=== PATIENT | male | born 1980 | race Caucasian/White ===

== ENCOUNTER 2017-10-10 14:06 | Emergency (ER) | payer OTHER ==
[~2017-10-10] VITALS: Ht 182.8 cm; Wt 72.6 kg
[~2017-10-10 14:06] MED LIST: HYDROCODONE BIT1 T11 PO; MOTRIN800 MG PO; PEN-VEE K500 MG PO
[2017-10-10] MEDS ORDERED: CLINDAMYCIN150 MG PO (14:16)
[2017-10-10] MEDS ORDERED: ZOFRAN4 MG PO (14:16)
[2017-10-10] MEDS ORDERED: Peridex 473 ML473 ML PO (14:16)
[2017-10-10] MEDS ORDERED: NAPROSYN500 MG PO (14:16)
== END 2017-10-10 14:40 | disposition home or self-care (01) ==
LOC: ED 14:06
DX: K04.7 Periapical abscess without sinus (principal)

== ENCOUNTER 2018-03-08 13:01 | Emergency (ER) | payer SELFPAY ==
[~2018-03-08] VITALS: Ht 175.2 cm; Wt 73.5 kg
[~2018-03-08 13:01] MED LIST changes: +CLINDAMYCIN150 MG PO; +NAPROSYN500 MG PO; +Peridex 473 ML473 ML PO; +ZOFRAN4 MG PO
[2018-03-08] MEDS ORDERED: NAPROSYN500 MG PO (13:33)
[2018-03-08] MEDS ORDERED: SEPTDS PO (13:33)
[2018-03-08] MEDS ORDERED: CEPHALEXIN500 M1 PO (13:33)
== END 2018-03-08 14:00 | disposition left against medical advice (07) ==
LOC: ED 13:01
DX: L03.311 Cellulitis of abdominal wall (principal); F17.200 Nicotine dependence, unspecified, uncomplicated

== ENCOUNTER 2018-07-09 11:28 | Emergency (ER) | payer SELFPAY ==
[~2018-07-09] VITALS: Ht 175.2 cm; Wt 77.1 kg
[~2018-07-09 11:28] MED LIST changes: +CEPHALEXIN500 M1 PO; +SEPTDS PO
[2018-07-09] MEDS ORDERED: Peridex 473 ML473 ML PO (11:34)
[2018-07-09] MEDS ORDERED: NAPROSYN500 MG PO (11:34)
[2018-07-09] MEDS ORDERED: AUGMENTIN 500500 MG PO (11:34)
[2018-07-09] MEDS ORDERED: ZOFRAN4 MG PO (11:34)
== END 2018-07-09 11:57 | disposition home or self-care (01) ==
LOC: ED 11:28
DX: K04.7 Periapical abscess without sinus (principal); K02.9 Dental caries, unspecified; R03.0 Elevated blood-pressure reading, without diagnosis of hypertension

== ENCOUNTER 2019-06-25 15:14 | Emergency (ER) | payer SELFPAY ==
[~2019-06-25] VITALS: Ht 175.2 cm; Wt 79.4 kg
[~2019-06-25 15:14] MED LIST changes: +AUGMENTIN 500500 MG PO
[2019-06-25] MEDS ORDERED: IBU800 MG PO (15:48)
[2019-06-25] MEDS ORDERED: AMOXICILLIN500 M3 PO (15:48)
== END 2019-06-25 15:50 | disposition home or self-care (01) ==
LOC: ED 15:14
DX: S02.5XXA Fracture of tooth (traumatic), initial encounter for closed fracture (principal); K04.7 Periapical abscess without sinus; X58.XXXA Exposure to other specified factors, initial encounter; Y93.89 Activity, other specified; Y92.89 Other specified places as the place of occurrence of the external cause; Y99.8 Other external cause status

== ENCOUNTER 2019-10-03 09:36 | Emergency (ER) | payer SELFPAY ==
[~2019-10-03 09:36] MED LIST changes: +AMOXICILLIN500 M3 PO; +IBU800 MG PO
[2019-10-03] MEDS ORDERED: NAPROSYN500 MG PO (09:57)
[2019-10-03] MEDS ORDERED: AMOXICILLIN500 M3 PO (09:57)
[2019-10-03] MEDS ORDERED: TYLENOL325 M1 PO (09:57)
== END 2019-10-03 10:20 | disposition home or self-care (01) ==
LOC: ED 09:36
DX: K02.9 Dental caries, unspecified (principal); K08.89 Other specified disorders of teeth and supporting structures; F17.200 Nicotine dependence, unspecified, uncomplicated; Z79.899 Other long term (current) drug therapy; Z79.2 Long term (current) use of antibiotics

== ENCOUNTER 2020-05-07 16:52 | Emergency (ER) | payer SELFPAY ==
[~2020-05-07] VITALS: Ht 175.2 cm; Wt 77.1 kg
[~2020-05-07 16:52] MED LIST changes: +TYLENOL325 M1 PO
[2020-05-07] MEDS ORDERED: CLINDAMYCIN HC300 MG PO (17:36)
== END 2020-05-07 17:48 | disposition home or self-care (01) ==
LOC: ED 16:52
DX: K04.7 Periapical abscess without sinus (principal)

== ENCOUNTER 2021-06-14 17:56 | Emergency (ER) | payer SELFPAY ==
[~2021-06-14] VITALS: Ht 175.2 cm; Wt 72.6 kg
[~2021-06-14 17:56] MED LIST changes: +CLINDAMYCIN HC300 MG PO
[2021-06-14] MEDS ORDERED: OFLOXACIN OTIC5 ML OT (18:28)
== END 2021-06-14 18:38 | disposition home or self-care (01) ==
LOC: ED 17:56
DX: H60.91 Unspecified otitis externa, right ear (principal); F17.200 Nicotine dependence, unspecified, uncomplicated

== ENCOUNTER 2022-10-18 16:07 | Emergency (ER) | payer SELFPAY ==
[~2022-10-18] VITALS: Ht 175.2 cm; Wt 72.6 kg
[~2022-10-18 16:07] MED LIST changes: +OFLOXACIN OTIC5 ML OT
[2022-10-18] MEDS ORDERED: AMOX-CLAV 875-1 EACH PO (16:35)
== END 2022-10-18 16:54 | disposition home or self-care (01) ==
LOC: ED 16:07
DX: H66.92 Otitis media, unspecified, left ear (principal); Z86.16 Personal history of COVID-19

== ENCOUNTER 2023-04-15 11:38 | Emergency (ER) | payer SELFPAY ==
[~2023-04-15 11:38] MED LIST changes: +AMOX-CLAV 875-1 EACH PO
== END 2023-04-15 14:27 | disposition left against medical advice (07) ==
LOC: ED 11:38
DX: M79.10 Myalgia, unspecified site (principal); Z53.21 Procedure and treatment not carried out due to patient leaving prior to being seen by health care provider